=== PATIENT | female | born 1935 | race Caucasian/White ===

== ENCOUNTER 2019-06-24 13:42 | Emergency (ER) | payer OTHER ==
[~2019-06-24] VITALS: Ht 167.6 cm; Wt 63.5 kg
[2019-06-24 14:10] VITALS: Ht 167.6 cm; Wt 63.5 kg
[2019-06-24 16:27] VITALS: BP 160/69
== END 2019-06-24 16:27 | disposition home or self-care (01) ==
LOC: ED 13:42
DX: S63.502A Unspecified sprain of left wrist, initial encounter (principal); M25.552 Pain in left hip; E11.9 Type 2 diabetes mellitus without complications; Z88.0 Allergy status to penicillin; W01.0XXA Fall on same level from slipping, tripping and stumbling without subsequent striking against object, initial encounter; Y93.89 Activity, other specified; Y92.89 Other specified places as the place of occurrence of the external cause; Y99.8 Other external cause status